=== PATIENT | female | born 1960 | race Caucasian/White ===

== ENCOUNTER → 2016-09-15 | Outpatient (CLI) | payer MEDICARE, BC | LOC: MW.CHIM 08:00 | CPT/HCPCS: 99407; G0463 ==

== ENCOUNTER 2016-09-18 20:42 | Emergency (ER) | payer MEDICARE, BC ==
[2016-09-18] MEDS ORDERED: Albuterol/Ipratropium 3.0-0.5 MG/3 ML Neb Soln NEB ONE (21:04)
[2016-09-18] MEDS ORDERED: cloNIDine 0.1 MG Tab PO ONE (21:15)
[2016-09-18 21:26] LABS: CHLORIDE,CL 109 mmol/L (98-110); SODIUM,NA 141 mmol/L (136-146)
--- NOTE | 2016-09-18 22:02 | EDM.PDOC ---
ED HISTORY OF PRESENT ILLNESS - General Chief Complaint: Respiratory Problem Stated Complaint: HARD TIME BREATHING Time Seen by Provider: 09/18/16 20:55 Source of Information: Reports: Patient History Limitations: Reports: No limitations - History of Present Illness INITIAL COMMENTS - FREE TEXT/NARRATIVE: HISTORY AND PHYSICAL: History of present illness: [Patient comes to the emergency room complaining of feeling as though she can't take a deep breath. She has no pain in her chest and is not feel winded. She's been evaluated for this within the past few weeks by her primary care provider, Gabi Tay, and the seismic plotter Dr. Butterfield. No cause of her dyspnea has been identified. She is scheduled for some breathing tests on September 22. She describes a sensation of not being able to take a deep breath and a sensation that she will only catch her breath if she takes a deep yawn. She has been compliant with her antihypertensives (propranolol, aspirin and Tylenol with codeine as needed). She feels frustrated because no cause for her symptoms have been identified and no treatment has been started. She's had lab work and chest x-rays completed all showing no abnormalities. Of note, patient quit smoking today. She has previously been a one half half-one pack a day smoker for her adult life. She denies fever and chills. She's had no sore throat and earaches. No headaches or dizziness. Denies chest pain. No nausea, vomiting or episodes of sweating. Bowel and bladder working normally. No muscle or joint aches or pains. She admits to feelings of anxiety when she feels short of breath. Feels that her anxiety is worsening while she is in the ER.] Review of systems: As per history of present illness and below otherwise all systems reviewed and negative. Past medical history: As per history of present illness and as reviewed below otherwise noncontributory. Surgical history: As per history of present illness and as reviewed below otherwise noncontributory. Social history: No reported history of drug or alcohol abuse. Family history: As per history of present illness and as reviewed below otherwise noncontributory. Physical exam: HEENT: Atraumatic, normocephalic. Oral mucous membranes moist, throat clear, neck supple, no lymphadenopathy. Lungs: Clear to auscultation, breath sounds equal bilaterally, no wheezing, crackles or rales. chest nontender. O2 sat remained at 98% on room air. Heart: S1S2, regular rate and rhythm, negative for clicks, rubs, or JVD. Abdomen: Soft, nondistended, nontender. Negative for masses or hepatosplenomegaly. Negative for costovertebral tenderness. Pelvis: Stable nontender. Genitourinary: Deferred. Rectal: Deferred. Extremities: Atraumatic, no swelling or cyanosis to feet or lower legs. Neurovascular unremarkable. Neuro: Awake, alert, oriented. Pleasant and conversational. Answers questions appropriately. Motor and sensory unremarkable throughout. Exam nonfocal. Diagnostics: [Chest x-ray, CBC, CMP, d-dimer, EKG] Therapeutics: [DuoNeb, clonidine 0.1 mg, alprazolam 0.25 mg] Impression: [Shortness of breath, hypertension, anxiety] Plan: [Blood pressure was elevated on presentation to the emergency room. Heart rate was 50. One dose of clonidine brought her pressure to 180s over 70s. She is given alprazolam 0.25 mg in the ER for her anxiety. Her O2 sat remains at 98% on room air. Her blood pressure remains 180s over 70s. she is stable for discharge at this time. Will have her followup with pulmonology as scheduled this week.] Definitive disposition and diagnosis as appropriate pending reevaluation and review of above. - Related Data Allergies/ADRs: Allergies Allergy/AdvReac Type Severity Reaction Status Date / Time No Known Allergies Allergy Verified 09/19/16 10:14 Home Meds: Home Meds Acetaminophen with Codeine [Tylenol with Codeine #3 Tablet] 1 each PO BID [History] Aspirin 81 mg PO BRK 09/18/16 [History] Propranolol [Inderal LA] 60 mg PO DAILY 09/18/16 [History] Past Medical History HEENT History: Reports: None Cardiovascular History: Reports: Hypertension Respiratory History: Reports: None Gastrointestinal History: Reports: None Genitourinary History: Reports: None INFORMATICIST History: Reports: None Other Musculoskeletal History: patient reports muscular disorder Neurological History: Reports: None Psychiatric History: Reports: None Endocrine/Metabolic History: Reports: None Hematologic History: Reports: None Oncologic (Cancer) History: Reports: None Dermatologic History: Reports: None - Infectious Disease History Infectious Disease History: Reports: None - Past Surgical History Female Surgical History: Reports: None Social & Family History - Family History Family Medical History: Noncontributory - Tobacco Use Smoking Status *Q: Current Every Day Smoker Years of Tobacco use: 30 Packs/Tins Daily: 0.5 - Recreational Drug Use Recreational Drug Use: No ED ROS GENERAL - Review of Systems Review Of Systems: ROS reveals no pertinent complaints other than HPI. ED EXAM, GENERAL - Physical Exam Exam: See Below Course - Vital Signs Last Recorded V/S: Last Vital Signs Temp 97.7 F 09/18/16 23:35 Pulse 50 L 09/18/16 23:35 Resp 16 09/18/16 23:35 BP 158/67 H 09/18/16 23:35 Pulse Ox 98 09/18/16 23:35 - Orders/Labs/Meds Orders: Active Orders 24 hr Category Date Time Status EKG 12 Lead [EKG Documentation Completion] [RC] STAT Care 09/18/16 21:03 Active RT Aerosol Therapy [RC] ASDIRECTED Care 09/18/16 21:05 Active Chest 2V [CR] Stat Exams 09/18/16 21:04 Taken Labs: Laboratory Tests 09/18/16 09/18/16 09/18/16 Range/Units 20:55 20:55 20:55 WBC 6.11 (4.0-11.0) K/uL RBC 4.66 (4.30-5.90) M/uL Hgb 14.4 (12.0-16.0) g/dL Hct 42.8 (36.0-46.0) % MCV 91.8 (80.0-98.0) fL MCH 30.9 (27.0-32.0) pg MCHC 33.6 (31.0-37.0) g/dL RDW Std Deviation 46.7 (28.0-62.0) fl RDW Coeff of Sandie 14 (11.0-15.0) % Plt Count 226 (150-400) K/uL MPV 11.10 (7.40-12.00) fL Neut % (Auto) 50.1 (48.0-80.0) % Lymph % (Auto) 35.8 (16.0-40.0) % Harney % (Auto) 11.5 (0.0-15.0) % Eos % (Auto) 2.1 (0.0-7.0) % Baso % (Auto) 0.5 (0.0-1.5) % Neut # 3.1 (1.4-5.7) K/uL Lymph # 2.2 (0.6-2.4) K/uL Harney # 0.7 (0.0-0.8) K/uL Eos # 0.1 (0.0-0.7) K/uL Baso # 0.0 (0.0-0.1) K/uL Nucleated RBC % 0.0 /100WBC Nucleated RBCs # 0 K/uL D-Dimer, Quantitative 0.38 (0.0-0.52) mg/LFEU Sodium 141 (136-146) mmol/L Potassium 4.4 (3.5-5.1) mmol/L Chloride 109 (98-110) mmol/L Carbon Dioxide 21 (21-31) mmol/L BUN 16 (6.0-23.0) mg/dL Creatinine 0.8 (0.6-1.5) mg/dL Est Cr Clr Drug Dosing 75.26 mL/min Estimated GFR (MDRD) > 60.0 ml/min Glucose 126 H (60-110) mg/dL Calcium 9.0 (8.8-10.8) mg/dL Total Bilirubin 0.5 (0.1-1.5) mg/dL AST 36 (5-40) IU/L ALT 42 (8-54) IU/L Alkaline Phosphatase 139 (40-150) Total Protein 7.3 (6.0-8.0) g/dL Albumin 4.2 (3.5-5.0) g/dL Globulin 3.1 (2.0-3.5) g/dL Albumin/Globulin Ratio 1.4 (1.3-2.8) Meds: Medications Discontinued Medications Generic Name Dose Route Start Last Admin Trade Name Freq PRN Reason Stop Dose Admin Albuterol/Ipratropium 3 ml 09/18/16 21:04 09/18/16 21:13 Duoneb 3.0-0.5 Mg/3 Ml NEB 09/18/16 21:05 3 ml ONETIME ONE Administration Alprazolam 0.25 mg 09/18/16 22:11 09/18/16 22:31 Xanax PO 09/18/16 22:12 0.25 mg NOW ONE Administration Alprazolam Confirm 09/18/16 22:25 09/18/16 22:32 Xanax Administered 09/18/16 22:26 Not Given Dose 0.25 mg .ROUTE .STK-MED ONE Clonidine HCl 0.1 mg 09/18/16 21:15 09/18/16 22:20 Catapres PO 09/18/16 21:16 0.1 mg ONETIME ONE Administration Propranolol HCl 20 mg 09/18/16 22:43 09/18/16 23:01 Inderal PO 09/18/16 22:44 20 mg ONETIME ONE Administration Departure - Departure Time of Disposition: 10:15 Disposition: Home, Self-Care 01 Condition: good Clinical Impression: Shortness of breath Instructions: Shortness of Breath, [id number] Referrals: PCP,None [Primary Care Provider] - Forms: ED Department Discharge Additional Instructions: The following information is given to patients seen in the emergency department who are being discharged to home. This information is to outline your options for follow-up care. We provide all patients seen in our emergency department with a follow-up referral. The need for follow-up, as well as the timing and circumstances, are variable depending upon the specifics of your emergency department visit. If you don't have a primary care physician on staff, we will provide you with a referral. We always advise you to contact your personal physician following an emergency department visit to inform them of the circumstance of the visit and for follow-up with them and/or the need for any referrals to a consulting specialist. The emergency department will also refer you to a specialist when appropriate. This referral assures that you have the opportunity for follow-up care with a specialist. All of these measure are taken in an effort to provide you with optimal care, which includes your follow-up. Under all circumstances we always encourage you to contact your private physician who remains a resource for coordinating your care. When calling for follow-up care, please make the office aware that this follow-up is from your recent emergency room visit. If for any reason you are refused follow-up, please contact the [facility] emergency department at and asked to speak to the emergency department charge nurse. [facility] [address] [place] [id number] Followup with your primary care next week as scheduled. Proceed with all consultations and tests as scheduled. Return to emergency room as needed and as we discussed. - My Orders Last 24 Hours: My Active Orders 09/18/16 21:03 EKG 12 Lead [EKG Documentation Completion] [RC] STAT 09/18/16 21:04 Chest 2V [CR] Stat 09/18/16 21:05 RT Aerosol Therapy [RC] ASDIRECTED - Assessment/Plan Last 24 Hours: My Active Orders 09/18/16 21:03 EKG 12 Lead [EKG Documentation Completion] [RC] STAT 09/18/16 21:04 Chest 2V [CR] Stat 09/18/16 21:05 RT Aerosol Therapy [RC] ASDIRECTED
[2016-09-18] MEDS ORDERED: ALPRAZolam 0.25 MG Tab PO ONE (22:11)
[2016-09-18] MEDS ORDERED: ALPRAZolam 0.25 MG Tab ONE (22:25)
[2016-09-18] MEDS ORDERED: Propranolol 20 MG Tab PO ONE (22:43)
[2016-09-18 23:52] VITALS: BP 158/67
--- NOTE | 2016-09-20 18:12 | CR ---
EXAM DATE: 09/18/16 PATIENT'S AGE: 56 Patient: MIC RAMIREZ Facility: [place], [place] Site . Site : 1960 Study: XRay Chest [id number]/4/2017 9:34:08 PM Ordering Physician: Doctor Colmenares Final Report: INDICATION: Shortness of breath, High Blood Pressure TECHNIQUE: Chest 2 views. COMPARISON: None. FINDINGS: Cardiovascular and mediastinum: Heart size and vasculature are normal in caliber and appearance. Mediastinum is within normal limits. Lungs and pleural spaces: Lungs are clear. No sign of infiltrate or mass. No sign of pleural effusion. No pneumothorax. Bones and soft tissues: No significant findings. IMPRESSION: Unremarkable chest. Dictated by: Mae Houser MD @ 09/18/2016 21:36:08 (Electronic Signature) Report Signed by Proxy and Original Signed Document filed in the Medical Record. MTDD
== END 2016-09-18 23:35 | disposition home or self-care (01) ==
LOC: MW.ED 20:42
DX: R06.02 Shortness of breath (principal); F41.9 Anxiety disorder, unspecified; I10 Essential (primary) hypertension; F17.210 Nicotine dependence, cigarettes, uncomplicated; Z79.899 Other long term (current) drug therapy
CPT/HCPCS: 71020; 80053; 85025; 85379; 93005; 94664; 99285; A9270; 99284

== ENCOUNTER 2016-09-19 10:10 | Emergency (ER) | payer MEDICARE, BC ==
--- NOTE | 2016-09-19 10:28 | EDM.PDOC ---
ED HISTORY OF PRESENT ILLNESS - General Chief Complaint: Cardiovascular Problem Stated Complaint: HIGH BLLOD PRESSURE/ABOUT TO PASS OUT Time Seen by Provider: 09/19/16 10:19 - History of Present Illness INITIAL COMMENTS - FREE TEXT/NARRATIVE: HISTORY AND PHYSICAL: History of present illness: Patient 56-year-old white female has had chronic intermittent dyspneamedical history significant for hypertension was seen in emergent varnishing had a workup that was unremarkable she is scheduled to see pulmonology as outpatient. She presents today with same symptoms yesterday with associated anxiety Review of systems: As per history of present illness and below otherwise all systems reviewed and negative. Past medical history: As per history of present illness and as reviewed below otherwise noncontributory. Surgical history: As per history of present illness and as reviewed below otherwise noncontributory. Social history: No reported history of drug or alcohol abuse. Family history: As per history of present illness and as reviewed below otherwise noncontributory. Physical exam: HEENT: Atraumatic, normocephalic, pupils reactive, negative for conjunctival pallor or scleral icterus, mucous membranes moist, throat clear, neck supple, nontender, trachea midline. Lungs: Clear to auscultation, breath sounds equal bilaterally, chest nontender. Heart: S1S2, regular, negative for clicks, rubs, or JVD. Abdomen: Soft, nondistended, nontender. Negative for masses or hepatosplenomegaly. Negative for costovertebral tenderness. Pelvis: Stable nontender. Genitourinary: Deferred. Rectal: Deferred. Extremities: Atraumatic, negative for cords or calf pain. Neurovascular unremarkable. Neuro: Awake, alert, oriented anxious. Cranial nerves II through XII unremarkable. Cerebellum unremarkable. Motor and sensory unremarkable throughout. Exam nonfocal. Diagnostics: CBC CMP troponin PT/INR chest x-ray EKG Therapeutics: IV O2 monitor Impression: #1 dyspnea #2 hypertension #3 anxiety Definitive disposition and diagnosis as appropriate pending reevaluation and review of above. - Related Data Allergies/ADRs: Allergies Allergy/AdvReac Type Severity Reaction Status Date / Time No Known Allergies Allergy Verified 09/19/16 10:14 Home Meds: Home Meds Acetaminophen with Codeine [Tylenol with Codeine #3 Tablet] 1 each PO BID [History] Aspirin 81 mg PO BRK 09/18/16 [History] Propranolol [Inderal LA] 60 mg PO DAILY 09/18/16 [History] Venlafaxine [Effexor XR] 37.5 mg PO DAILY 09/19/16 [History] Past Medical History HEENT History: Reports: None Cardiovascular History: Reports: Hypertension Respiratory History: Reports: None Gastrointestinal History: Reports: None Genitourinary History: Reports: None YOUTH MINISTER History: Reports: None Other Musculoskeletal History: patient reports muscular disorder Neurological History: Reports: None Psychiatric History: Reports: None Endocrine/Metabolic History: Reports: None Hematologic History: Reports: None Immunologic History: Reports: None Oncologic (Cancer) History: Reports: None Dermatologic History: Reports: None - Infectious Disease History Infectious Disease History: Reports: None - Past Surgical History Head Surgeries/Procedures: Reports: None Female Surgical History: Reports: None Social & Family History - Family History Family Medical History: Noncontributory - Tobacco Use Smoking Status *Q: Former Smoker Years of Tobacco use: 30 Packs/Tins Daily: 0.5 - Caffeine Use Caffeine Use: Reports: Coffee - Recreational Drug Use Recreational Drug Use: No ED ROS GENERAL - Review of Systems Review Of Systems: ROS reveals no pertinent complaints other than HPI. ED EXAM, GENERAL - Physical Exam Exam: See Below (See dictation) Course - Vital Signs Last Recorded V/S: Last Vital Signs Temp 36.9 C 09/19/16 10:15 Pulse 77 09/19/16 10:15 Resp 18 09/19/16 10:15 BP 175/84 H 09/19/16 10:15 Pulse Ox 98 09/19/16 10:15 - Orders/Labs/Meds Orders: Active Orders 24 hr Category Date Time Status EKG 12 Lead [EKG Documentation Completion] [RC] STAT Care 09/19/16 10:31 Active Chest 1V Frontal [CR] Stat Exams 09/19/16 10:31 Ordered CBC WITH AUTO DIFF [HEME] Stat Lab 09/19/16 10:31 Ordered COMPREHENSIVE METABOLIC PN,CMP [CHEM] Stat Lab 09/19/16 10:31 Ordered INR,PT,PROTHROMBIN TIME [COAG] Stat Lab 09/19/16 10:31 Ordered TROPONIN I [CHEM] Stat Lab 09/19/16 10:31 Ordered Departure - Departure Time of Disposition: 10:34 Disposition: Home, Self-Care 01 Condition: good Clinical Impression: Dyspnea, Anxiety Forms: ED Department Discharge Additional Instructions: The following information is given to patients seen in the emergency department who are being discharged to home. This information is to outline your options for follow-up care. We provide all patients seen in our emergency department with a follow-up referral. The need for follow-up, as well as the timing and circumstances, are variable depending upon the specifics of your emergency department visit. If you don't have a primary care physician on staff, we will provide you with a referral. We always advise you to contact your personal physician following an emergency department visit to inform them of the circumstance of the visit and for follow-up with them and/or the need for any referrals to a consulting specialist. The emergency department will also refer you to a specialist when appropriate. This referral assures that you have the opportunity for followup care with a specialist. All of these measure are taken in an effort to provide you with optimal care, which includes your followup. Under all circumstances we always encourage you to contact your private physician who remains a resource for coordinating your care. When calling for followup care, please make the office aware that this follow-up is from your recent emergency room visit. If for any reason you are refused follow-up, please contact the [facility] emergency department at and asked to speak to the emergency department charge nurse. Continue current medications keep scheduled appointments as discussed follow up primary medical doctor one to 2 days return as needed discussed - My Orders Last 24 Hours: My Active Orders 09/19/16 10:31 EKG 12 Lead [EKG Documentation Completion] [RC] STAT Chest 1V Frontal [CR] Stat CBC WITH AUTO DIFF [HEME] Stat COMPREHENSIVE METABOLIC PN,CMP [CHEM] Stat INR,PT,PROTHROMBIN TIME [COAG] Stat TROPONIN I [CHEM] Stat - Assessment/Plan Last 24 Hours: My Active Orders 09/19/16 10:31 EKG 12 Lead [EKG Documentation Completion] [RC] STAT Chest 1V Frontal [CR] Stat CBC WITH AUTO DIFF [HEME] Stat COMPREHENSIVE METABOLIC PN,CMP [CHEM] Stat INR,PT,PROTHROMBIN TIME [COAG] Stat TROPONIN I [CHEM] Stat
[2016-09-19 11:03] LABS: CHLORIDE,CL 110 mmol/L (98-110); SODIUM,NA 142 mmol/L (136-146)
[2016-09-19 11:36] VITALS: BP 189/92
--- NOTE | 2016-09-20 18:28 | CR ---
EXAM DATE: 09/19/16 PATIENT'S AGE: 56 Patient: MIC RAMIREZ Facility: [place], [place] Site . Site : 1960 Study: XRay Chest [id number]/5/[id number] 10:49:20 AM Ordering Physician: Doctor Colmenares Final Report: INDICATION: High blood pressure. Pain. Technique: Single view of the chest. Findings: The heart and mediastinum are normal in size. The pulmonary vessels are normal. The lungs are clear. No pleural fluid. No acute bony abnormalities. Impression: No acute chest disease. Dictated by Christopher Collazo MD @ Sep 19 2016 11:13AM (Electronic Signature) Report Signed by Proxy and Original Signed Document filed in the Medical Record. MTDD
== END 2016-09-19 11:34 | disposition home or self-care (01) ==
LOC: MW.ED 10:10
DX: R06.00 Dyspnea, unspecified (principal); F41.9 Anxiety disorder, unspecified; I10 Essential (primary) hypertension; Z79.82 Long term (current) use of aspirin; Z79.899 Other long term (current) drug therapy; Z87.891 Personal history of nicotine dependence
CPT/HCPCS: 36415; 71010; 71010-26; 80053; 84484; 85025; 85610; 93005; 99283; 99284-25

== ENCOUNTER → 2016-09-22 | Outpatient (CLI) | payer MEDICARE, BC ==
[~2016-09-22] MED LIST: Iopamidol 755 MG/ML 500 ML Multipack Bottle IVPUSH STA
--- NOTE | 2016-09-22 16:02 | CT ---
EXAM DATE: 09/22/16 PATIENT'S AGE: 56 Patient: MIC RAMIREZ Facility: [place], [place] Site . Site : 1960 Study: CT Chest Angio [id number]/8/2017 10:52:18 AM Ordering Physician: Srinivas Hernandez Final Report: INDICATION: Chest pain. TECHNIQUE: CT chest pulmonary PE protocol acquired with 50 cc Isovue 370 IV contrast. COMPARISON: Chest radiograph 09/19/2016. FINDINGS: CARDIOVASCULAR STRUCTURES: Normal vascular enhancement of the pulmonary arteries , no sign of pulmonary embolism. Heart size is normal. No sign of aneurysm or dissection in the thoracic aorta. MEDIASTINUM/ERIC: No mass or adenopathy. LUNGS/PLEURA: There is mild paraseptal emphysema in the upper lobes. Lungs are otherwise clear. No pleural effusions. CHEST WALL/AXILLA: No mass or adenopathy. UPPER ABDOMEN: Unremarkable. BONES: No significant findings. IMPRESSION: Unremarkable chest CT. Specifically, no pulmonary embolism, pneumonia, or other abnormality to explain chest pain. Dictated by Shelton Siu MD @ 09/22/2016 11:05:50 AM Dictated by: Shelton Siu MD @ 09/22/2016 11:05:57 (Electronic Signature) Report Signed by Proxy and Original Signed Document filed in the Medical Record. [facility]
== END ==
LOC: MW.DI 09:11
PROVIDERS: ATTEND Internal Medicine
DX: R07.9 Chest pain, unspecified (principal)
CPT/HCPCS: 71275; Q9967

== ENCOUNTER → 2016-11-08 | Outpatient (CLI) | payer MEDICARE, BC | END | disposition home or self-care (01) | LOC: MW.LAB 08:52 | PROVIDERS: ATTEND Internal Medicine Interventional Cardiology | DX: I10 Essential (primary) hypertension (principal) | CPT/HCPCS: 36415; 82384; 83835 ==

== ENCOUNTER 2017-01-12 15:00 | Emergency (ER) | payer MEDICARE, BC ==
[2017-01-12] MEDS ORDERED: Sodium Chloride 0.9% 2.5 ML Syringe FLUSH PRN (15:13)
[2017-01-12] MEDS ORDERED: Sodium Chloride 0.9% 10 ML Syringe FLUSH PRN (15:13)
--- NOTE | 2017-01-12 15:20 | EDM.PDOC ---
ED HPI GENERAL MEDICAL PROBLEM - General Chief Complaint: Cardiovascular Problem Stated Complaint: HIGH BP Time Seen by Provider: 01/12/17 15:12 Source of Information: Reports: Patient History Limitations: Reports: No Limitations - History of Present Illness INITIAL COMMENTS - FREE TEXT/NARRATIVE: HISTORY AND PHYSICAL: []56-year-old female presents with shortness of breath Hypertension History of Present Illness: []Patient is on multiple medications propranolol 40 twice a day losartan 50 mg daily for hypertension and headaches Heart rate is generally 40s and 50s Review of Systems: As per history of present illness and below otherwise all systems reviewed and negative. Past medical history: As per history of present illness and as reviewed below otherwise noncontributory. Surgical history: As per history of present illness and as reviewed below otherwise noncontributory. Social history: No reported history of drug or alcohol abuse. Family history: As per history of present illness and as reviewed below otherwise noncontributory. Physical exam: Alert and oriented female/tobacco small present/ speaking in full sentences HEENT: Atraumatic, normocehpalic, pupils reactive, negative for conjunctival pallor or scleral icterus, mucous membranes moist, throat clear, neck supple, nontender, trachea midline. Lungs: Clear to auscultation, breath sounds equal bilaterally, chest non tender. Heart: S1S2, regular, negative for clicks, rubs, or JVD. Abdomen: Soft, nondistended, nontender. Negative for masses or hepatossplenmegaly. Negative for costovertebral tenderness. Pelvis: Stable nontender. Genitourinary: Deferred. Rectal: Deferred Extremities: Atraumatic, negative for cords or calf pain. Neurovascular unremarkable. Neuro: Awake, alert, oriented. Cranial nerves II through XII unremarkable. Cerebellum unremarkable. Motor and sensory unremarkable throughout. Exam nonfocal. Diagnostics: [CBC CMP troponin UA urine culture chest x-ray] Therapeutics: []Duo[employer] Impression: [#1 panic attack] #2 bradycardia #3 chronic hypertension Plan: []#1 reduce propranolol to 20 mg twice a day #2 increase the Cozaar to 50 mg twice daily #3 follow-up primary care provider next week Number for any symptoms worsen and return for further evaluation Definitive disposition and diagnosis as appropriate pending reevaluation and review of above. Onset: Today Duration: Getting Worse Location: Reports: Chest Severity: Mild - Related Data Allergies Allergy/AdvReac Type Severity Reaction Status Date / Time No Known Allergies Allergy Verified 01/12/17 15:09 Home Meds: Home Meds Acetaminophen with Codeine [Tylenol with Codeine #3 Tablet] 1 each PO BEDTIME [History] Aspirin 81 mg PO BRK 09/18/16 [History] Propranolol [Inderal LA] 40 mg PO DAILY 09/18/16 [History] ALPRAZolam [Alprazolam ER] 0.5 mg PO TID PRN 01/12/17 [History] Losartan [Cozaar] 50 mg PO DAILY 01/12/17 [History] Simvastatin [Zocor] 20 mg PO BEDTIME 01/12/17 [History] Past Medical History HEENT History: Reports: None Cardiovascular History: Reports: High Cholesterol, Hypertension Respiratory History: Reports: Other (See Below) Other Respiratory History: emphysema Gastrointestinal History: Reports: None Genitourinary History: Reports: None 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: Reports: None Other Musculoskeletal History: patient reports muscular disorder Neurological History: Reports: None Psychiatric History: Reports: Anxiety Endocrine/Metabolic History: Reports: None Hematologic History: Reports: None Immunologic History: Reports: None Oncologic (Cancer) History: Reports: None Dermatologic History: Reports: None - Infectious Disease History Infectious Disease History: Reports: Chicken Pox, Measles, Mumps - Past Surgical History Head Surgeries/Procedures: Reports: None Female Surgical History: Reports: Section Social & Family History - Family History Family Medical History: Noncontributory - Tobacco Use Smoking Status *Q: Current Every Day Smoker Years of Tobacco use: 30 Packs/Tins Daily: 0.7 - Caffeine Use Caffeine Use: Reports: None - Recreational Drug Use Recreational Drug Use: No ED ROS GENERAL - Review of Systems Review Of Systems: ROS reveals no pertinent complaints other than HPI. ED EXAM, GENERAL - Physical Exam Exam: See Below (See dictation) Course - Vital Signs Last Recorded V/S: Last Vital Signs Temp 36.8 C 01/12/17 15:06 Pulse 46 L 01/12/17 16:12 Resp 15 01/12/17 16:12 BP 166/87 H 01/12/17 16:12 Pulse Ox 98 01/12/17 16:12 - Orders/Labs/Meds Orders: Active Orders 24 hr Category Date Time Status Cardiac Monitoring [RC] . DIRECTED Care 01/12/17 15:13 Active EKG Documentation Completion [RC] STAT Care 01/12/17 15:13 Active Oxygen Therapy, ED [RC] ASDIRECTED Care 01/12/17 15:13 Active Sodium Chloride 0.9% [Saline Flush] Med 01/12/17 15:13 Active 10 ml FLUSH ASDIRECTED PRN Sodium Chloride 0.9% [Saline Flush] Med 01/12/17 15:13 Active 2.5 ml FLUSH ASDIRECTED PRN Saline Lock Insert [OM.PC] Stat Oth 01/12/17 15:13 Ordered Medication Orders Sodium Chloride (Saline Flush) 10 ml FLUSH ASDIRECTED PRN PRN Reason: Keep Vein Open Last Admin: 01/12/17 15:26 Dose: 10 ml Sodium Chloride (Saline Flush) 2.5 ml FLUSH ASDIRECTED PRN PRN Reason: Keep Vein Open Last Admin: 01/12/17 15:25 Dose: 2.5 ml Labs: Laboratory Tests 01/12/17 01/12/17 01/12/17 Range/Units 15:10 15:10 15:10 WBC 6.53 (4.0-11.0) K/uL RBC 4.80 (4.30-5.90) M/uL Hgb 14.8 (12.0-16.0) g/dL Hct 43.4 (36.0-46.0) % MCV 90.4 (80.0-98.0) fL MCH 30.8 (27.0-32.0) pg MCHC 34.1 (31.0-37.0) g/dL RDW Std Deviation 45.4 (28.0-62.0) fl RDW Coeff of Sandie 14 (11.0-15.0) % Plt Count 208 (150-400) K/uL MPV 11.00 (7.40-12.00) fL Neut % (Auto) 57.4 (48.0-80.0) % Lymph % (Auto) 33.1 (16.0-40.0) % [place] % (Auto) 7.0 (0.0-15.0) % Eos % (Auto) 1.7 (0.0-7.0) % Baso % (Auto) 0.8 (0.0-1.5) % Neut # (Auto) 3.8 (1.4-5.7) K/uL Lymph # (Auto) 2.2 (0.6-2.4) K/uL [place] # (Auto) 0.5 (0.0-0.8) K/uL Eos # (Auto) 0.1 (0.0-0.7) K/uL Baso # (Auto) 0.1 (0.0-0.1) K/uL Nucleated RBC % 0.0 /100WBC Nucleated RBCs # 0 K/uL Sodium 139 (136-146) mmol/L Potassium 3.8 (3.5-5.1) mmol/L Chloride 109 (98-110) mmol/L Carbon Dioxide 19 L (21-31) mmol/L BUN 13 (6.0-23.0) mg/dL Creatinine 0.8 (0.6-1.5) mg/dL Est Cr Clr Drug Dosing 75.26 mL/min Estimated GFR (MDRD) > 60.0 ml/min Glucose 89 (60-110) mg/dL Calcium 9.2 (8.8-10.8) mg/dL Total Bilirubin 1.1 (0.1-1.5) mg/dL AST 15 (5-40) IU/L ALT 14 (8-54) IU/L Alkaline Phosphatase 125 (40-150) Troponin I < 0.10 (0.0-0.29) NG/ML Total Protein 7.3 (6.0-8.0) g/dL Albumin 4.5 (3.5-5.0) g/dL Globulin 2.8 (2.0-3.5) g/dL Albumin/Globulin Ratio 1.6 (1.3-2.8) TSH 3rd Generation 2.31 (0.47-5.0) uIU/mL Meds: Medications Generic Name Dose Route Start Last Admin Trade Name Freq PRN Reason Stop Dose Admin Sodium Chloride 10 ml 01/12/17 15:13 01/12/17 15:26 Saline Flush FLUSH 10 ml ASDIRECTED PRN Administration Keep Vein Open Sodium Chloride 2.5 ml 01/12/17 15:13 01/12/17 15:25 Saline Flush FLUSH 2.5 ml ASDIRECTED PRN Administration Keep Vein Open Departure - Departure Time of Disposition: 16:29 Disposition: Home, Self-Care 01 Condition: Good Clinical Impression: Shortness of breath, Panic attack Hypertensive heart disease Qualifiers: Heart failure presence: without heart failure Qualified Code(s): I11.9 - Hypertensive heart disease without heart failure Forms: ED Department Discharge Additional Instructions: The following information is given to patients seen in the emergency department who are being discharged to home. This information is to outline your options for follow-up care. We provide all patients seen in our emergency department with a follow-up referral. The need for follow-up, as well as the timing and circumstances, are variable depending upon the specifics of your emergency department visit. If you don't have a primary care physician on staff, we will provide you with a referral. We always advise you to contact your personal physician following an emergency department visit to inform them of the circumstance of the visit and for follow-up with them and/or the need for any referrals to a consulting specialist. The emergency department will also refer you to a specialist when appropriate. This referral assures that you have the opportunity for followup care with a specialist. All of these measure are taken in an effort to provide you with optimal care, which includes your followup. Under all circumstances we always encourage you to contact your private physician who remains a resource for coordinating your care. When calling for followup care, please make the office aware that this follow-up is from your recent emergency room visit. If for any reason you are refused follow-up, please contact the [facility] emergency department at and asked to speak to the emergency department charge nurse. A prescription change to propranolol 20 mg twice daily, losartan 100 mg daily Follow-up with your primary care provider next week Any worsening of his symptoms please return for immediate evaluation - My Orders Last 24 Hours: My Active Orders 01/12/17 15:13 Cardiac Monitoring [RC] . DIRECTED EKG Documentation Completion [RC] STAT Oxygen Therapy, ED [RC] ASDIRECTED Sodium Chloride 0.9% [Saline Flush] 10 ml FLUSH ASDIRECTED PRN Sodium Chloride 0.9% [Saline Flush] 2.5 ml FLUSH ASDIRECTED PRN Saline Lock Insert [OM.PC] Stat - Assessment/Plan Last 24 Hours: My Active Orders 01/12/17 15:13 Cardiac Monitoring [RC] . DIRECTED EKG Documentation Completion [RC] STAT Oxygen Therapy, ED [RC] ASDIRECTED Sodium Chloride 0.9% [Saline Flush] 10 ml FLUSH ASDIRECTED PRN Sodium Chloride 0.9% [Saline Flush] 2.5 ml FLUSH ASDIRECTED PRN Saline Lock Insert [OM.PC] Stat
[2017-01-12 15:48] LABS: CHLORIDE,CL 109 mmol/L (98-110); SODIUM,NA 139 mmol/L (136-146)
--- NOTE | 2017-01-12 15:55 | CR ---
EXAMINATION: Two-view chest (PA and Lateral views). HISTORY: Shortness of breath. FINDINGS: The trachea is midline. The cardiomediastinal silhouette is within normal limits. No pulmonary infil trates, effusions or pneumothorax. Osseous structures appear unremarkable. IMPRESSION: No acute cardiopulmonary process.
[2017-01-12 16:39] VITALS: BP 170/86
== END 2017-01-12 16:47 | disposition home or self-care (01) ==
LOC: MW.ED 15:00
DX: F41.0 Panic disorder [episodic paroxysmal anxiety] (principal); R00.1 Bradycardia, unspecified; I11.9 Hypertensive heart disease without heart failure; E78.00 Pure hypercholesterolemia, unspecified; F17.210 Nicotine dependence, cigarettes, uncomplicated; Z79.899 Other long term (current) drug therapy
CPT/HCPCS: 36415; 71020; 71020-26; 80053; 84443; 84484; 85025; 93005; 99284; 99285-25

== ENCOUNTER 2020-02-05 20:49 | Emergency (ER) | payer MEDICARE, OTHER ==
--- NOTE | 2020-02-05 21:16 | EDM.PDOC ---
ED HPI GENERAL MEDICAL PROBLEM - General Chief Complaint: Diabetic Complaint Stated Complaint: HIGH BLOOD SUGAR, DIABETIC Time Seen by Provider: 02/05/20 20:57 Source of Information: Reports: Patient History Limitations: Reports: No Limitations - History of Present Illness INITIAL COMMENTS - FREE TEXT/NARRATIVE: Presents reporting "my blood sugars have been running too high". She shows me her meter which indicate 4 times daily checks: 269, 219, 479, 421, 420, 374, 186. Her management plan includes for Farxiga 10 mg once daily and Tradjenta 5 mg once daily. She states that she cannot tolerate long-acting insulin or metformin. Her primary provider is Dr. Iniguez. She also sees a music educator. She states she has an appointment with Dr. Iniguez on February 26 but did not want a wait that long to adjust her blood sugars. She denies any acute illness including fever, dysuria, breathing problems, abdominal pain, nausea, vomiting, or diarrhea. She drinks 10, 20 oz tumblers of water a day. - Related Data Allergies Allergy/AdvReac Type Severity Reaction Status Date / Time No Known Allergies Allergy Verified 02/05/20 21:01 Home Meds: Home Meds Acetaminophen with Codeine [Tylenol with Codeine #3 Tablet] 1 each PO BEDTIME 09/18/16 [History] Aspirin 81 mg PO BRK 09/18/16 [History] Propranolol [Inderal LA] 40 mg PO DAILY 09/18/16 [History] ALPRAZolam [Alprazolam ER] 0.5 mg PO TID PRN 01/12/17 [History] Losartan [Cozaar] 50 mg PO DAILY 01/12/17 [History] Simvastatin [Zocor] 20 mg PO BEDTIME 01/12/17 [History] Past Medical History HEENT History: Reports: None Cardiovascular History: Reports: High Cholesterol, Hypertension Respiratory History: Reports: Other (See Below) Other Respiratory History: emphysema Gastrointestinal History: Reports: None Genitourinary History: Reports: None FOREST SUPERVISOR History: Reports: None Other Musculoskeletal History: patient reports muscular disorder Neurological History: Reports: None Psychiatric History: Reports: Anxiety Endocrine/Metabolic History: Reports: None Hematologic History: Reports: None Immunologic History: Reports: None Oncologic (Cancer) History: Reports: None Dermatologic History: Reports: None - Infectious Disease History Infectious Disease History: Reports: Chicken Pox, Measles, Mumps - Past Surgical History Head Surgeries/Procedures: Reports: None Female Surgical History: Reports: Section Social & Family History - Family History Family Medical History: Noncontributory - Caffeine Use Caffeine Use: Reports: None ED ROS GENERAL - Review of Systems Review Of Systems: Comprehensive ROS is negative, except as noted in HPI. ED EXAM, GENERAL - Physical Exam Exam: See Below Exam Limited By: No Limitations General Appearance: Alert, No Apparent Distress Ears: Normal External Exam Nose: Normal Inspection Throat/Mouth: Normal Inspection Head: Atraumatic, Normocephalic Neck: Normal Inspection Respiratory/Chest: No Respiratory Distress, Lungs Clear, Normal Breath Sounds Cardiovascular: Normal Peripheral Pulses, Regular Rate, Rhythm GI/Abdominal: Soft, Non-Tender, No Distention Extremities: Normal Inspection Neurological: Alert, Oriented, Normal Cognition Psychiatric: Normal Affect, Normal Mood Skin Exam: Warm, Dry, Intact, Normal Color, No Rash Lymphatic: No Adenopathy Course - Vital Signs Last Recorded V/S: Last Vital Signs Temp 36.2 C 02/05/20 22:15 Pulse 67 02/05/20 22:15 Resp 18 02/05/20 22:15 BP 134/72 02/05/20 22:15 Pulse Ox 97 02/05/20 22:15 - Orders/Labs/Meds Labs: Laboratory Tests 02/05/20 02/05/20 02/05/20 Range/Units 21:05 21:25 22:00 POC Glucose 381 H 350 H (60-110) mg/dL Urine Color YELLOW Urine Appearance CLEAR Urine pH 5.5 (5.0-8.0) Ur Specific [place] 1.015 (1.001-1.035) Urine Protein NEGATIVE (NEGATIVE) mg/dL Urine Glucose (UA) >=1000 (NEGATIVE) mg/dL Urine Ketones 15 H (NEGATIVE) mg/dL Urine Occult Blood TRACE-INTACT H (NEGATIVE) Urine Nitrite NEGATIVE (NEGATIVE) Urine Bilirubin NEGATIVE (NEGATIVE) Urine Urobilinogen 0.2 (<2.0) EU/dL Ur Leukocyte Esterase NEGATIVE (NEGATIVE) Urine RBC 1-3 (0-2/HPF) Urine WBC 0-2 (0-5/HPF) Ur Epithelial Cells OCCASIONAL (NONE-FEW) Urine Bacteria RARE (NEGATIVE) Urine Mucus LIGHT (NONE-MOD) Meds: Medications Discontinued Medications Generic Name Dose Route Start Last Admin Trade Name Omar DYSON Reason Stop Dose Admin Insulin Aspart 10 unit 02/06/20 21:10 Novolog SUBCUT 02/06/20 21:11 BIDAC ONE Insulin Human Regular Confirm 02/05/20 21:21 02/05/20 21:27 Novolin R Administered 02/05/20 21:22 Not Given Dose 1,000 unit .ROUTE .STK-MED ONE Insulin Human Regular 10 unit 02/05/20 21:21 02/05/20 21:26 Novolin R SUBCUT 02/05/20 21:22 10 units ONETIME ONE Administration Protocol Departure - Departure Time of Disposition: 22:15 Disposition: Home, Self-Care 01 Condition: Good Clinical Impression: Diabetes Qualifiers: Diabetes mellitus type: type 2 Diabetes mellitus extermination supervisor insulin use: with extermination supervisor use Diabetes mellitus complication status: without complication Qualified Code(s): E11.9 - Type 2 diabetes mellitus without complications - Discharge Information Instructions: Hyperglycemia, [id number] Referrals: Misha Iniguez MD [Primary Care Provider] - Forms: ED Department Discharge Sepsis Event Note (ED) - Evaluation Sepsis Screening Result: No Definite Risk
[2020-02-05] MEDS ORDERED: Insulin Regular, Human 100 Units/ML 10 ML Vial SUBCUT ONE (21:21)
[2020-02-05] MEDS ORDERED: Insulin Regular, Human 100 Units/ML 10 ML Vial ONE (21:21)
[2020-02-05 22:36] VITALS: BP 134/72; PULSE 67
== END 2020-02-05 22:15 | disposition home or self-care (01) ==
LOC: MW.ED 20:49
DX: E11.9 Type 2 diabetes mellitus without complications (principal); I10 Essential (primary) hypertension; E78.00 Pure hypercholesterolemia, unspecified; F41.9 Anxiety disorder, unspecified; Z79.4 Long term (current) use of insulin; Z98.890 Other specified postprocedural states; Z79.82 Long term (current) use of aspirin; Z79.899 Other long term (current) drug therapy
CPT/HCPCS: 81001; 82962; 99283; J1815-GY

== ENCOUNTER 2020-07-28 06:25 | Day surgery (SDC) | payer MEDICARE, OTHER ==
[~2020-07-28 06:25] MED LIST changes: -Iopamidol 755 MG/ML 500 ML Multipack Bottle IVPUSH STA; +Lactated Ringers 1,000 ML IV SCH
[2020-07-28] MEDS ORDERED: Bupivacaine 0.5% 10 ML SDV ONE (07:09)
[2020-07-28] MEDS ORDERED: Midazolam 1 MG/ML 2 ML SDV ONE (07:22)
[2020-07-28] MEDS ORDERED: fentaNYL 100 MCG/2 ML SDV ONE (07:22)
[2020-07-28] MEDS ORDERED: Propofol 200 MG/20 ML SDV ONE (07:22)
--- NOTE | 2020-07-28 07:48 | PCM.PREANE ---
Preanesthetic Assessment - Anesthesia/Transfusion/Family Hx Anesthesia History: Prior Anesthesia Without Reaction Other Type of Anesthesia Reaction Comment: pt adopted, family hx unknown Family History of Anesthesia Reaction: No Transfusion History: No Prior Transfusion(s) Intubation History: Unknown - Review of Systems General: No Symptoms Pulmonary: No Symptoms Cardiovascular: No Symptoms Gastrointestinal: No Symptoms Neurological: No Symptoms Other: Reports: None - Physical Assessment Height: 5 ft 6 in Weight: 60.328 kg ASA Class: 2 Mental Status: Alert & Oriented x3 Airway Class: Mallampati = 2 Dentition: Reports: Normal Dentition Thyro-Mental Finger Breadths: 3 Mouth Opening Finger Breadths: 3 ROM/Head Extension: Full Lungs: Clear to Auscultation, Normal Respiratory Effort Cardiovascular: Regular Rate, Regular Rhythm - Lab Values: Laboratory Last Values SARS-CoV-2 RNA (BEATRICE) NEGATIVE (NEGATIVE) 07/28/20 06:30 - Allergies Allergies/Adverse Reactions: Allergies Allergy/AdvReac Type Severity Reaction Status Date / Time albuterol Allergy Shortness Verified 07/22/20 10:14 of Breath bupropion [From Wellbutrin] Allergy Rash Verified 07/22/20 10:09 - Blood Blood Available: No - Anesthesia Plan Pre-Op Medication Ordered: None - Acknowledgements Anesthesia Type Planned: General Anesthesia Pt an Appropriate Candidate for the Planned Anesthesia: Yes Alternatives and Risks of Anesthesia Discussed w Pt/Guardian: Yes Pt/Guardian Understands and Agrees with Anesthesia Plan: Yes PreAnesthesia Questionnaire HEENT History: Reports: Retinal Detachment, Other (See Below) Other HEENT History: wears glasses Cardiovascular History: Reports: High Cholesterol, Hypertension Respiratory History: Reports: Other (See Below) Other Respiratory History: H&P states COPD, pt denies, has smoked 1/2 PPD x 40 years Gastrointestinal History: Reports: GERD Genitourinary History: Reports: None GROUND HAND History: Reports: Musculoskeletal History: Reports: Back Pain, Chronic, Neck Pain, Chronic Other Musculoskeletal History: patient reports bone disorder Neurological History: Reports: Migraines Psychiatric History: Reports: Anxiety, Depression Endocrine/Metabolic History: Reports: Diabetes, Type II Hematologic History: Reports: None Immunologic History: Reports: None Oncologic (Cancer) History: Reports: None Dermatologic History: Reports: None - Infectious Disease History Infectious Disease History: Reports: Chicken Pox, Measles, Mumps - Past Surgical History Head Surgeries/Procedures: Reports: None HEENT Surgical History: Reports: Cataract Surgery, Eye Surgery Other HEENT Surgeries/Procedures: eye surgery for retinal detachment Cardiovascular Surgical History: Reports: None Respiratory Surgical History: Reports: None GI Surgical History: Reports: Colonoscopy, EGD Female Surgical History: Reports: Section, Tubal Ligation Endocrine Surgical History: Reports: None Neurological Surgical History: Reports: None Musculoskeletal Surgical History: Reports: None Oncologic Surgical History: Reports: None Dermatological Surgical History: Reports: None - SUBSTANCE USE Tobacco Use Status *Q: Current Every Day Tobacco User (1/2 ppd) Tobacco Use Within Last Twelve Months: Cigarettes - HOME MEDS Home Medications: Home Meds Aspirin 81 mg PO BRK 09/18/16 [History] ALPRAZolam [Alprazolam ER] 0.5 mg PO TID PRN 01/12/17 [History] Cholecalciferol (Vitamin D3) [Vitamin D3] 2,000 units PO DAILY 07/22/20 [History] Diltiazem [Dilacor XR] 240 mg PO DAILY 07/22/20 [History] Insulin Aspart [NovoLOG] 1 injection SUBCUT TIDMEALS 07/22/20 [History] Insulin Degludec [Tresiba] 1 injection SUBCUT BEDTIME 07/22/20 [History] Omeprazole 1 tab PO DAILY 07/22/20 [History] Rizatriptan Benzoate [Rizatriptan] 1 tab SL ASDIRECTED PRN 07/22/20 [History] Venlafaxine HCl [Venlafaxine ER] 150 mg PO DAILY 07/22/20 [History] Vitamin B6-pyridOXINE 1 tab PO DAILY 07/22/20 [History] - CURRENT (IN HOUSE) MEDS Current Meds: Current Medications Lactated Ringer's (Ringers, Lactated) 1,000 mls @ 125 mls/hr IV ASDIRECTED NALLELY Discontinued Medications Bupivacaine HCl (Sensorcaine-Mpf 0.5%) Confirm Administered Dose 10 ml .ROUTE .STK-MED ONE Stop: 07/28/20 07:10 Fentanyl (Sublimaze) Confirm Administered Dose 100 mcg .ROUTE .STK-MED ONE Stop: 07/28/20 07:23 Acetaminophen (Ofirmev) Confirm Administered Dose 100 mls @ as directed .ROUTE .STK-MED ONE Stop: 07/28/20 07:10 Lidocaine HCl (Xylocaine-Mpf 1%) Confirm Administered Dose 5 ml .ROUTE .STK-MED ONE Stop: 07/28/20 07:23 Midazolam HCl (Versed 1 Mg/Ml) Confirm Administered Dose 2 mg .ROUTE .STK-MED ONE Stop: 07/28/20 07:23 Propofol (Diprivan 20 Ml) Confirm Administered Dose 200 mg .ROUTE .STK-MED ONE Stop: 07/28/20 07:23
[2020-07-28] MEDS ORDERED: Ondansetron 4 MG/2 ML SDV IVPUSH PRN (08:12)
[2020-07-28] MEDS ORDERED: HYDROmorphone 2 MG/ML Syringe IVPUSH PRN (08:12)
[2020-07-28] MEDS ORDERED: fentaNYL 100 MCG/2 ML SDV IVPUSH PRN (08:13)
[2020-07-28] MEDS ORDERED: EPINEPHrine 1:10,000 1 MG/10 ML Syringe IVPUSH PRN (08:13)
[2020-07-28] MEDS ORDERED: Naloxone 0.4 MG/ML Syringe IVPUSH PRN (08:13)
[2020-07-28] MEDS ORDERED: 50% Dextrose in Water 50 ML Syringe IVPUSH PRN (08:13)
[2020-07-28] MEDS ORDERED: Atropine 0.1 MG/ML 10 ML Syringe IVPUSH PRN ×2 (08:13)
[2020-07-28] MEDS ORDERED: Acetaminophen/HYDROcodone 325-5 MG Tab PO PRN (08:41)
--- NOTE | 2020-07-28 08:44 | PCM.OPNOTE ---
- General Post-Op/Procedure Note Date of Surgery/Procedure: 07/28/20 Operative Procedure(s): Excision left anterior chest wall mass Pre Op Diagnosis: Left anterior chest wall mass Post-Op Diagnosis: Same Anesthesia Technique: General LMA (ASA II) Primary Surgeon: Elkin Redman Fluid Replacement, Intraop: 750 EBL in mLs: 5 Condition: Good Free Text/Narrative:: DICTATION 096008 CPT CODE 71723
[2020-07-28] MEDS ORDERED: Lactated Ringers 1,000 ML IV SCH (08:45)
--- NOTE | 2020-07-28 08:56 | PCM.POSTAN ---
POST ANESTHESIA ASSESSMENT - MENTAL STATUS Mental Status: Alert, Oriented - VITAL SIGNS Vital Signs: Last Vital Signs Temp 36.4 C 07/28/20 08:38 Pulse 55 L 07/28/20 08:48 Resp 13 07/28/20 08:48 BP 158/74 H 07/28/20 08:48 Pulse Ox 99 07/28/20 08:48 - RESPIRATORY Respiratory Status: Respiratory Rate WNL, Airway Patent, O2 Saturation Stable - CARDIOVASCULAR CV Status: Pulse Rate WNL, Blood Pressure Stable - GASTROINTESTINAL GI Status: No Symptoms - PAIN Pain Score: 0 - POST OP HYDRATION Hydration Status: Adequate & Stable - OBSERVATIONS Free Text/Narrative:: No anesthesia problems
--- NOTE | 2020-07-28 09:09 | PCM48HPAN ---
Post Anesthesia Note - EVALUATION WITHIN 48HRS OF ANESTHETIC Vital Signs in Normal Range: Yes Patient Participated in Evaluation: Yes Respiratory Function Stable: Yes Airway Patent: Yes Cardiovascular Function Stable: Yes Hydration Status Stable: Yes Pain Control Satisfactory: Yes Nausea and Vomiting Control Satisfactory: Yes Mental Status Recovered: Yes Vital Signs: Last Vital Signs Temp 36.4 C 07/28/20 08:38 Pulse 55 L 07/28/20 08:48 Resp 13 07/28/20 08:48 BP 158/74 H 07/28/20 08:48 Pulse Ox 99 07/28/20 08:48 - COMMENTS/OBSERVATIONS Free Text/Narrative:: No anesthesia problems
[2020-07-28 10:57] VITALS: BP 141/63; PULSE 57
--- NOTE | 2020-07-28 15:39 | OR ---
SURGEON: Elkin Redman M.D. DATE OF PROCEDURE: 07/28/2020 OPERATION PERFORMED: Excision of 5 cm left chest wall mass. PRIMARY SURGEON: Elkin Redman M.D. ANESTHESIA: General LMA. ASA CLASSIFICATION: II. PREOPERATIVE DIAGNOSIS: Symptomatic left chest wall mass. POSTOPERATIVE DIAGNOSIS: Symptomatic left chest wall mass. ESTIMATED BLOOD LOSS: 5 mL. INTRAOPERATIVE FLUID REPLACEMENT: 750 mL of crystalloid. DESCRIPTION OF PROCEDURE: The patient was taken to the operating room and placed on the operating table in the supine position. Time-out was called for appropriate identification of the patient and procedure. The surgical site had been marked prior to the patient entering the operating room. Sequential compression boots were placed. Following satisfactory attainment of general anesthesia with placement of an LMA, the left chest was prepped with DuraPrep solution and sterile drapes were applied. Skin incision had previously been marked out. This was now infiltrated with 5 mL of 0.5% Marcaine solution. Skin incision was made and deepened through the subcutaneous tissue obtaining hemostasis with the use of electrocautery. The subcutaneous mass was circumferentially excised using electrocautery. Small bleeding sites were electrocoagulated. One bleeding site was suture ligated with 3-0 Vicryl. The wound was then inspected for hemostasis. No bleeding was noted. No other masses were identified. The subcutaneous tissue was reapproximated with running 3-0 Vicryl and the skin edges reapproximated with subcuticular 4-0 Monocryl. Half-inch Steri-Strips were placed across the incision which was dressed with a sterile Tegaderm pad. Sponge, needle, and instrument counts were all correct. Following emergence from anesthesia and extubation, the patient was taken to recovery room in stable condition. MARCY / CAMELIA /[id number]
== END 2020-07-28 09:10 | disposition home or self-care (01) ==
LOC: MW.SDS 06:25
PROVIDERS: ATTEND Surgery
DX: D17.1 Benign lipomatous neoplasm of skin and subcutaneous tissue of trunk (principal); J44.9 Chronic obstructive pulmonary disease, unspecified; I10 Essential (primary) hypertension; G43.909 Migraine, unspecified, not intractable, without status migrainosus; E11.9 Type 2 diabetes mellitus without complications; K21.9 Gastro-esophageal reflux disease without esophagitis; F17.210 Nicotine dependence, cigarettes, uncomplicated; E78.00 Pure hypercholesterolemia, unspecified; Z01.812 Encounter for preprocedural laboratory examination; Z20.822 Contact with and (suspected) exposure to COVID-19; Z88.8 Allergy status to other drugs, medicaments and biological substances; Z79.899 Other long term (current) drug therapy; Z79.82 Long term (current) use of aspirin; Z98.890 Other specified postprocedural states
CPT/HCPCS: 21552; 82962; 88304; J0131; J2001; J2250; J2704; J3490; J7120; U0002; 00400; J3010

== ENCOUNTER 2024-02-03 18:20 | Emergency (ER) | payer MEDICARE, OTHER ==
[2024-02-03] MEDS: Iopamidol 755 MG/ML 500 ML Multipack Bottle IVPUSH STA (18:55)
[2024-02-03 19:17] LABS: BASOPHILS ABSOLUTE AUTO 0.04 K/uL (0.00-0.20); BASOPHILS PERCENT AUTO 0.8 % (0.0-1.0); EOSINOPHILS ABSOLUTE AUTO 0.04 K/uL (0.00-0.45); EOSINOPHILS PERCENT AUTO 0.8 % (0.0-6.0); HEMATOCRIT 31.9 % (37.0-47.0); HEMOGLOBIN 10.9 g/dL (12.0-16.0); IMMATURE GRAN ABSOLUTE AUTO 0.02 K/uL (0.00-0.05); IMMATURE GRAN PERCENT AUTO 0.4 % (0.0-0.4); LYMPHOCYTES ABSOLUTE AUTO 1.24 K/uL (1.00-4.80); LYMPHOCYTES PERCENT AUTO 23.8 % (24.0-44.0); MEAN CORPUSCULAR HEMOGLOBIN 30.8 pg (28.0-32.0); MEAN CORPUSCULAR HGB CONC 34.2 g/dL (32.0-36.0); MEAN CORPUSCULAR VOLUME 90.1 fL (83.0-99.0); MEAN PLATELET VOLUME 10.1 fL (9.4-12.3); MONOCYTES ABSOLUTE AUTO 0.61 K/uL (0.00-0.80); MONOCYTES PERCENT AUTO 11.7 % (0.0-8.0); NEUTROPHILS ABSOLUTE AUTO 3.25 K/uL (1.80-7.70); NEUTROPHILS PERCENT AUTO 62.5 % (41.0-71.0); PLATELET COUNT,PLT 225 K/uL (150-400); RED BLOOD CELL COUNT 3.54 M/uL (4.10-5.30)
[2024-02-03 19:34] LABS: INR 1.11 (0.86-1.11); PTT,PARTIAL THROMBOPLSTIN TIME 26.8 SEC (23.9-30.7)
[2024-02-03] MEDS: Sodium Chloride 0.9% 1,000 ML IV ONE (19:35)
[2024-02-03 19:41] LABS: A/G RATIO 1.2 (0.9-1.6); ALANINE AMINOTRANSFERASE,ALT 15 IU/L (14-63); ALBUMIN 3.4 g/dL (3.4-5.0); ALKALINE PHOSPHATASE 117 U/L (46-116); ASPARTATE AMNIOTRANSFERASE,AST 10 IU/L (15-37); BILIRUBIN TOTAL 0.5 mg/dL (0.2-1.0); BLOOD UREA NITROGEN,BUN 25 mg/dL (7.0-18.0); CALCIUM 8.6 mg/dL (8.5-10.1); CARBON DIOXIDE,CO2 24.3 mmol/L (21.0-32.0); CHLORIDE,CL 100 mmol/L (98-107); CREATININE 1.5 mg/dL (0.6-1.0); EST CRCL DRUG DOSING (CG) 35.44 mL/min; GLUCOSE RANDOM 117 mg/dL (74-106); MAGNESIUM 1.8 mg/dL (1.8-2.4); POTASSIUM,K 4.1 mmol/L (3.5-5.1); PROTEIN TOTAL,TP 6.2 g/dL (6.4-8.2); SODIUM,NA 135 mmol/L (136-145)
[2024-02-03 19:45] LABS: ESTIMATED GFR 39 mL/min (>60)
[2024-02-03] MEDS: Tenecteplase 50 MG Kit IV STA (19:59)
[2024-02-03 20:45] LABS: APPEARANCE,URINE CLEAR; BILIRUBIN,URINE NEGATIVE (NEGATIVE); COLOR,URINE YELLOW; GLUCOSE,URINE NEGATIVE (NEGATIVE); KETONES,URINE NEGATIVE (NEGATIVE); LEUKOCYTE ESTERASE,URINE NEGATIVE (NEGATIVE); NITRITE,URINE NEGATIVE (NEGATIVE); OCCULT BLOOD,URINE NEGATIVE (NEGATIVE); PH,URINE 6.5 (5.0-8.0); PROTEIN,URINE NEGATIVE (NEGATIVE); UROBILINOGEN,URINE 0.2 EU/dL (<2.0)
[2024-02-03] MEDS: Labetalol 100 MG/20 ML MDV IVPUSH ONE (20:55)
[2024-02-03] MEDS: Labetalol 100 MG/20 ML MDV ONE (20:57)
[2024-02-03 21:09] VITALS: BP 187/72; PULSE 76
== END 2024-02-03 21:08 ==
LOC: MW.ED 18:20
DX: I63.9 Cerebral infarction, unspecified (principal); I10 Essential (primary) hypertension; J44.9 Chronic obstructive pulmonary disease, unspecified; K21.9 Gastro-esophageal reflux disease without esophagitis; E11.9 Type 2 diabetes mellitus without complications; Z79.899 Other long term (current) drug therapy; Z79.4 Long term (current) use of insulin; Z88.8 Allergy status to other drugs, medicaments and biological substances; Z75.8 Other problems related to medical facilities and other health care
CPT/HCPCS: 36415; 70450; 70496; 70498; 80053; 81003; 83735; 84484; 85025; 85610; 85730; 93005; 96361; 96374; 96375; 99285; J1921; J3101; J7030; Q9967